=== PATIENT | female | born 1955 | race Caucasian/White ===

== ENCOUNTER → 2017-05-19 | Outpatient (CLI) | payer OTHER | LOC: FIMAGING 13:09 | PROVIDERS: ATTEND Family Medicine | DX: Z12.31 Encounter for screening mammogram for malignant neoplasm of breast (principal) | CPT/HCPCS: G0202 ==

== ENCOUNTER → 2017-06-08 | Outpatient (CLI) | payer OTHER | LOC: FIMAGING 11:16 | PROVIDERS: ATTEND Family Medicine | DX: R92.8 Other abnormal and inconclusive findings on diagnostic imaging of breast (principal) | CPT/HCPCS: G0206 ==

== ENCOUNTER → 2018-06-16 | Outpatient (CLI) | payer MEDICAID | LOC: FIMAGING 09:30 | DX: R19.03 Right lower quadrant abdominal swelling, mass and lump (principal) ==

== ENCOUNTER → 2018-06-27 | Outpatient (CLI) | payer MEDICAID | LOC: FIMAGING 15:28 | PROVIDERS: ATTEND Family Medicine | DX: K59.00 Constipation, unspecified (principal); F31.60 Bipolar disorder, current episode mixed, unspecified ==

== ENCOUNTER 2018-10-16 12:00 | Emergency (ER) | payer MEDICAID ==
[2018-10-16] MEDS ORDERED: NS 1,000 ML IV ONE ×2 (12:16→14:16)
[2018-10-16] MEDS ORDERED: ONDANSETRON 4 MG/2 ML VIAL IVP ONE (12:16)
--- NOTE | 2018-10-16 12:29 | EDPHY ---
H & P Stated Complaint: H/A x1hr, not responding to meds, focus and vomiting issues. Admits phys Time Seen by Provider: 10/16/18 12:17 HPI/ROS: CHIEF COMPLAINT: Headache x1 hour HISTORY OF PRESENT ILLNESS: 63-year-old female with no history of chronic headache drove herself to the ER complaining of bifrontal headache. She describes approximately 1 hr prior to my evaluation she was cleaning her house and had a relatively sudden onset of bifrontal headache with associated dizziness. She has associated nausea, vomiting, dizziness and photophobia. Her symptoms are becoming progressively improved without pharmacologic intervention and since sitting in a dark room in the ER. PRIMARY CARE PROVIDER:Michael flowers REVIEW OF SYSTEMS: 10 systems reviewed and negative with the exception of the elements mentioned in the history of present illness PAST MEDICAL & SURGICAL HISTORY: history of bipolar disorder SOCIAL HISTORY: Nonsmoker. PHYSICAL EXAM (Prior to examination, patient consented to physical exam, hands were washed and my usual and customary physical exam procedures followed) 1) GENERAL: Well-developed, well-nourished, alert and oriented. Appears to be in no acute distress. Sitting in a darkened room with a cloth across her eyes. 2) HEAD: Normocephalic, atraumatic 3) HEENT: Pupils equal, round, reactive to light bilaterally. Sclera anicteric. Nasopharynx, oropharynx, clear, no lesions. MoistDry mucous membranes. Ears bilaterally with normal tympanic membranes. 4) NECK: Full range of motion, no meningeal signs. 5) LUNGS: Clear auscultation bilaterally, no wheezes, no rhonchi, no retractions. 6) HEART: Regular rate and rhythm, no murmur, no heave, no gallop. 7) ABDOMEN: No guarding, no rebound, no focal tenderness, negative McBurney's, negative Kendrick's, negative Rovsing's, negative peritoneal sign, 8) MUSCULOSKELETAL: Moving all extremities, no focal areas of tenderness, no obvious trauma. No peripheral edema or discoloration. 9) BACK: No CVA tenderness, no midline vertebral tenderness, no fluctuance, no step-off, no obvious trauma, no visual or palpable abnormality. 10) SKIN: No rash, no petechiae. 11) Psychiatric: Patient is oriented X 3, there is no agitation. 12) NEURO: Awake, alert, and oriented to person, place and time. Answers questions appropriately. There were no obvious focal neurologic abnormalities. No cerebellar dysfunction. Cranial nerves 2 through to 12 intact. Normal steady gait. Upper and lower extremities bilaterally with strength 5 / 5, reflexes 2+. DIFFERENTIAL DIAGNOSIS: In no particular order, including but not limited to subarachnoid hemorrhage, migraine headache, tension headache and infectious causes such as meningitis, pharyngitis and sinusitis. The patient understands that this diagnosis is provisional and can never be 100% accurate. Usual and customary warnings were given concerning the clinical impression and all the patient's questions were answered. The patient was instructed to return to the emergency department should her symptoms worsen or return, or develop any new symptoms, otherwise to followup as directed in discharge instructions. This is a partial list of diagnoses considered. These considerations are based on history, physical exam, past history and reassessment. - Personal History Current Tetanus/Diphtheria Vaccine: Unsure - Medical/Surgical History Hx Asthma: No Hx Chronic Respiratory Disease: No Hx Diabetes: No Hx Cardiac Disease: No Hx Renal Disease: No Hx Cirrhosis: No Hx Alcoholism: No Hx HIV/AIDS: No Hx Splenectomy or Spleen Trauma: No Other PMH: bipolar, bowel obstruction - Social History Smoking Status: Never smoked Constitutional: Initial Vital Signs Temperature (C) 36.5 C 10/16/18 12:04 Heart Rate 65 10/16/18 12:04 Respiratory Rate 16 10/16/18 12:04 Blood Pressure 139/96 H 10/16/18 12:04 O2 Sat (%) 97 10/16/18 12:04 O2 Delivery Mode Room Air O2 (L/minute) 2 Allergies/Adverse Reactions: No Known Allergies Allergy (Unverified 10/16/18 12:03) Medical Decision Making - Diagnostics Imaging Results: Imaging Impressions Head CT 10/16/18 12:54 Impression: 1. Normal CT brain without contrast. 2. No sinusitis. 3. Consider MRI of the brain, if there is continued clinical concern. Findings and recommendations discussed with emergency department physician social work assistant, Rudolph Das PA-C at 1420 hours on October 16, 2018. Final report concurs with initial preliminary interpretation. Head CTA 10/16/18 12:54 Impression: 1. No carotid atherosclerotic disease, flow-limiting stenosis, occlusion, or dissection. 2. Patent vertebrobasilar system without evidence of dissection or flow- limiting stenosis. 3. A few benign subcentimeter thyroid nodules. 4. Mild cervical spondylosis. Measurement of carotid stenosis is based on the residual internal carotid diameter with [place] Symptomatic Carotid Endarterectomy Trial (NASCET) based stenosis levels. CT Angiogram of the Brain Clinical Indications: New onset headache, dizziness. Technique: CT angiogram of the brain and neck was performed with the uneventful intravenous administration of 75 mL Isovue-370 contrast. Multiplanar reconstructions including 3-D reconstructions performed and evaluated on [employer] workstation in order to better evaluate the [place] vessels. Images were manipulated by the radiologist at the computer workstation. Dose reduction techniques were utilized. Findings: Major vessels of the [place] are adequately displayed, demonstrating no evidence of aneurysm, vascular malformation, flow-limiting stenosis, or occlusion. Bilateral cavernous internal carotid arteries and vertebrobasilar system demonstrates no evidence of flow-limiting stenosis, aneurysm, occlusion, or dissection. Superior sagittal sinus, transverse sinuses , and major veins demonstrate no evidence of intraluminal thrombi. Impression: Negative CT angiogram of the brain. Findings and recommendations discussed with emergency department physician social work assistant, Rudolph Das PA-C at 1430 hours on October 16, 2018. Final report concurs with initial preliminary interpretation. Neck CTA 10/16/18 12:54 Impression: 1. No carotid atherosclerotic disease, flow-limiting stenosis, occlusion, or dissection. 2. Patent vertebrobasilar system without evidence of dissection or flow- limiting stenosis. 3. A few benign subcentimeter thyroid nodules. 4. Mild cervical spondylosis. Measurement of carotid stenosis is based on the residual internal carotid diameter with [place] Symptomatic Carotid Endarterectomy Trial (NASCET) based stenosis levels. CT Angiogram of the Brain Clinical Indications: New onset headache, dizziness. Technique: CT angiogram of the brain and neck was performed with the uneventful intravenous administration of 75 mL Isovue-370 contrast. Multiplanar reconstructions including 3-D reconstructions performed and evaluated on [employer] workstation in order to better evaluate the [place] vessels. Images were manipulated by the radiologist at the computer workstation. Dose reduction techniques were utilized. Findings: Major vessels of the [place] are adequately displayed, demonstrating no evidence of aneurysm, vascular malformation, flow-limiting stenosis, or occlusion. Bilateral cavernous internal carotid arteries and vertebrobasilar system demonstrates no evidence of flow-limiting stenosis, aneurysm, occlusion, or dissection. Superior sagittal sinus, transverse sinuses , and major veins demonstrate no evidence of intraluminal thrombi. Impression: Negative CT angiogram of the brain. Findings and recommendations discussed with emergency department physician social work assistant, Rudolph Das PA-C at 1430 hours on October 16, 2018. Final report concurs with initial preliminary interpretation. Images reviewed myself ED Course/Re-evaluation: 1:49 p.m.: Patient is currently on the CT table, received phone call the patient was experiencing acute anxiety . She will be given benzodiazepine . 2:40 p.m.: CT imaging interpreted by staff radiologist, with images reviewed myself, negative for acute pathology. Patient was re-evaluated by myself states that she is "totally better". She is quite somnolent this time requested to sleep a further time.. She remains with a nonfocal neurologic exam 3:19 p.m.: Re-evaluation, patient is awake alert would like to leave. Discussed with patient I think that subarachnoid hemorrhage, vertebral vessel dissection are less than likely this patient at this time. At This time I do not think that further diagnostic studies are indicated . My Usual customary headache precautions and instructions provided. Care of patient under supervision of [secondary] supervising physician Dr Hicks. - Data Points Laboratory Results: Laboratory Results 10/16/18 12:22 10/16/18 12:22 10/16/18 10/16/18 10/16/18 14:40 12:29 12:22 WBC RBC Hgb POC Hgb 15.0 gm/dL gm/dL (12.6-16.3) Hct POC Hct 44 % % (38-47) MCV MCH MCHC RDW Plt Count MPV Neut % (Auto) Lymph % (Auto) [place] % (Auto) Eos % (Auto) Baso % (Auto) Nucleat RBC Rel Count Absolute Neuts (auto) Absolute Lymphs (auto) Absolute Monos (auto) Absolute Eos (auto) Absolute Basos (auto) Absolute Nucleated RBC Immature Gran % Immature Gran # POC Sodium 140 mEq/L mEq/L (135-145) Sodium 138 mEq/L mEq/L (135-145) POC Potassium 4.4 mEq/L mEq/L (3.3-5.0) Potassium 4.7 mEq/L mEq/L (3.5-5.2) POC Chloride 107 mEq/L mEq/L (97-110) Chloride 106 mEq/L mEq/L (97-110) Carbon Dioxide 21 mEq/l L mEq/l (22-31) POC Total CO2 22 mEq/L mEq/L (22-31) Anion Gap 11 mEq/L mEq/L (6-14) POC BUN 25 mg/dL H mg/dL (7-23) BUN 25 mg/dL H mg/dL (7-23) Creatinine 1.1 mg/dL H mg/dL (0.6-1.0) POC Creatinine 1.2 mg/dL H mg/dL (0.6-1.0) Estimated GFR 50 Glucose 95 mg/dL mg/dL (70-100) POC Glucose 94 mg/dL mg/dL (70-100) Calcium 10.0 mg/dL mg/dL (8.5-10.4) POC Troponin I 0.00 ng/mL ng/mL (0.00-0.08) 10/16/18 12:22 WBC 6.30 10^3/uL 10^3/uL (3.80-9.50) RBC 4.98 10^6/uL 10^6/uL (4.18-5.33) Hgb 14.8 g/dL g/dL (12.6-16.3) POC Hgb Hct 44.6 % % (38.0-47.0) POC Hct MCV 89.6 fL fL (81.5-99.8) MCH 29.7 pg pg (27.9-34.1) MCHC 33.2 g/dL g/dL (32.4-36.7) RDW 11.9 % % (11.5-15.2) Plt Count 325 10^3/uL 10^3/uL (150-400) MPV 9.2 fL fL (8.7-11.7) Neut % (Auto) 51.0 % % (39.3-74.2) Lymph % (Auto) 37.0 % % (15.0-45.0) [place] % (Auto) 6.3 % % (4.5-13.0) Eos % (Auto) 4.8 % % (0.6-7.6) Baso % (Auto) 0.6 % % (0.3-1.7) Nucleat RBC Rel Count 0.0 % % (0.0-0.2) Absolute Neuts (auto) 3.21 10^3/uL 10^3/uL (1.70-6.50) Absolute Lymphs (auto) 2.33 10^3/uL 10^3/uL (1.00-3.00) Absolute Monos (auto) 0.40 10^3/uL 10^3/uL (0.30-0.80) Absolute Eos (auto) 0.30 10^3/uL 10^3/uL (0.03-0.40) Absolute Basos (auto) 0.04 10^3/uL 10^3/uL (0.02-0.10) Absolute Nucleated RBC 0.00 10^3/uL 10^3/uL (0-0.01) Immature Gran % 0.3 % % (0.0-1.1) Immature Gran # 0.02 10^3/uL 10^3/uL (0.00-0.10) POC Sodium Sodium POC Potassium Potassium POC Chloride Chloride Carbon Dioxide POC Total CO2 Anion Gap POC BUN BUN Creatinine POC Creatinine Estimated GFR Glucose POC Glucose Calcium POC Troponin I Medications Given: Discontinued Medications Sodium Chloride (Ns) 1,000 mls @ 0 mls/hr IV ONCE ONE PRN Reason: Wide Open Stop: 10/16/18 12:17 Last Admin: 10/16/18 12:29 Dose: 1,000 mls Sodium Chloride (Ns) 1,000 mls @ 0 mls/hr IV ONCE ONE PRN Reason: Wide Open Stop: 10/16/18 14:17 Last Admin: 10/16/18 14:32 Dose: 1,000 mls Lorazepam (Ativan Injection) 1 mg IVP EDNOW ONE Stop: 10/16/18 13:49 Last Admin: 10/16/18 13:50 Dose: 1 mg Ondansetron HCl (Zofran) 4 mg IVP EDNOW ONE Stop: 10/16/18 12:17 Last Admin: 10/16/18 12:29 Dose: 4 mg Point of Care Test Results: Chemistry 10/16/18 10/16/18 14:40 12:29 POC Sodium 140 mEq/L mEq/L (135-145) POC Potassium 4.4 mEq/L mEq/L (3.3-5.0) POC Chloride 107 mEq/L mEq/L (97-110) POC Total CO2 22 mEq/L mEq/L (22-31) POC BUN 25 mg/dL H mg/dL (7-23) POC Creatinine 1.2 mg/dL H mg/dL (0.6-1.0) POC Glucose 94 mg/dL mg/dL (70-100) POC Troponin I 0.00 ng/mL ng/mL (0.00-0.08) ISTAT H&H 10/16/18 12:29 POC Hgb 15.0 gm/dL gm/dL (12.6-16.3) POC Hct 44 % % (38-47) Departure - Departure Disposition: Home, Routine, Self-Care Clinical Impression: Headache Qualifiers: Headache type: unspecified Headache chronicity pattern: acute headache Intractability: not intractable Qualified Code(s): R51 - Headache Condition: Good Instructions: Acute Headache (ED) Additional Instructions: THANK YOU FOR YOUR VISIT TO OUR EMERGENCY DEPARTMENT (ED). YOU WERE SEEN TODAY BECAUSE OF A HEADACHE. YOU MAY HAVE HAD LAB TESTS, A CT SCAN, MRI OR EVEN A LUMBAR PUNCTURE (COMMONLY REFERRED TO A SPINAL TAP). WE CANNOT ALWAYS FIND THE EXACT CAUSE OF YOUR SYMPTOMS DURING YOUR VISIT TO THE ED. PLEASE FOLLOW UP WITH YOUR DOCTOR WITHIN 24 HOURS TO BE RECHECKED. RETURN TO THE ED IMMEDIATELY IF YOUR HEADACHE WORSENS, IF YOU DEVELOP A FEVER, NECK PAIN OR NECK STIFFNESS, OR IF YOU BECOME CONFUSED OR ABNORMALLY DROWSY. Referrals: Carissa Carver MD [Primary Care Provider] - 1 day without fail NIH Stroke Scale Date of Exam: 10/16/18 Time of Exam: 12:25 Level of Consciousness: Alert LOC Questions: Answers Both LOC Commands: Performs Both Correctly Best Gaze: Normal Visual: No Visual Loss Facial Palsy: Normal Motor Arm-Left: No Drift Motor Arm-Right: No Drift Motor Leg-Left: No Drift Motor Leg-Right: No Drift Limb Ataxis: Absent Sensory: Normal Best Language: No Aphasia Dysarthria: Normal Extinction and Inattention (Neglect): No Abnormality NIH Scale Score: 0
[2018-10-16 12:36] LABS: PLATELET COUNT 325 10^3/uL (150-400)
[2018-10-16] MEDS ORDERED: IOPAMIDOL (ISOVUE 370) 100 ML BTL IV ONE (13:10)
[2018-10-16] MEDS ORDERED: LORazepam 2 MG/ML INJ IVP ONE (13:48)
[2018-10-16 15:36] VITALS: BP 125/77
== END 2018-10-16 15:40 | disposition home or self-care (01) ==
DX: R51 Headache (principal); E04.2 Nontoxic multinodular goiter; M47.892 Other spondylosis, cervical region
CPT/HCPCS: 82435-PO; 82565-PO; 82947-PO; 84132-PO; 84295-PO; 84484-ER; 84520-PO; 85014-ER; 96374; J2060; J2405; Q9967

== ENCOUNTER 2018-10-16 23:51 | Emergency (ER) | payer MEDICAID ==
[2018-10-16 23:57] VITALS: BP 123/83
--- NOTE | 2018-10-17 00:05 | EDPHY ---
H & P Stated Complaint: L arm pain post IV earlier today Time Seen by Provider: 10/16/18 23:54 HPI/ROS: Chief Complaint: Pain at IV site HPI: 63-year-old woman was here approximately 12 hr ago with headache. She had a IV placed and had a CT scan of her head and neck with IV contrast. Patient started having discomfort at her IV site while she was here. She is having persistent pain and a little bit of swelling and a "knot" at her IV site in the left AC. No redness, no fevers or chills. No chest pain or shortness of breath. She has been applying warm wash cloths. ROS: 10 systems were reviewed and were negative except those elements noted in the HPI. Social History: [No] smoking, [no] alcohol, [ no recreational drug use] Family History: [non-contributory] Physical Exam: Gen: [Awake], [Alert], [No Distress] HEENT: [ ] [Nose: no rhinorrhea] Eyes: [PERRLA], [EOMI] Mouth: [Moist mucosa] [] Neck: [Supple], [no JVD] Ext: Left arm: Patient has tenderness and some moderate swelling just proximal to the IV site in her left arm consistent with a hematoma versus mild infiltration. Is not warm to the touch. There is no palpable cord. There is no erythema. Is minimally tender. There is no significant arm swelling otherwise. Skin: [no rash] Neuro: [CN II-XII intact], [Sensation grossly intact], Strength [5]/5 in [ bilateral] [upper and] [lower] extremities - Medical/Surgical History Hx Asthma: No Hx Chronic Respiratory Disease: No Hx Diabetes: No Hx Cardiac Disease: No Hx Renal Disease: No Hx Cirrhosis: No Hx Alcoholism: No Hx HIV/AIDS: No Hx Splenectomy or Spleen Trauma: No Other PMH: bipolar, bowel obstruction - Social History Smoking Status: Never smoked Constitutional: Initial Vital Signs Temperature (C) 36.8 C 10/16/18 23:52 Heart Rate 75 10/16/18 23:52 Respiratory Rate 16 10/16/18 23:52 Blood Pressure 123/83 H 10/16/18 23:52 O2 Sat (%) 96 10/16/18 23:52 O2 Delivery Mode Room Air Allergies/Adverse Reactions: No Known Allergies Allergy (Unverified 10/16/18 23:52) Medical Decision Making ED Course/Re-evaluation: 63-year-old woman whose got pain or IV site likely secondary to some mild infiltration with a hematoma. No signs of significant thrombosis at this time. She has been reassured. I have advised her to continue with hot packs, follow up with primary care physician in 3-4 days if symptoms are not improving. Departure - Departure Disposition: Home, Routine, Self-Care Clinical Impression: Superficial thrombophlebitis Condition: Good Instructions: Superficial Thrombophlebitis (ED) Additional Instructions: Continue applying warm packs. Follow up with primary care physician in 3-4 days if symptoms are not improving. Return for increasing redness, increasing swelling, increasing pain, fevers, or any other concerns. Referrals: Carissa Carver MD [Primary Care Provider] - As per Instructions
== END 2018-10-17 00:05 | disposition home or self-care (01) ==
DX: I80.02 Phlebitis and thrombophlebitis of superficial vessels of left lower extremity (principal)
CPT/HCPCS: 82435-PO; 82565-PO; 82947-PO; 84132-PO; 84295-PO; 84484-ER; 84520-PO; 85014-ER; 96374; J2060; J2405; Q9967

== ENCOUNTER 2018-12-08 12:00 | Emergency (ER) | payer MEDICAID | END 2018-12-08 13:56 | disposition home or self-care (01) ==